=== PATIENT | male | born 1955 | race Caucasian/White ===

== ENCOUNTER → 2017-11-05 | Outpatient (CLI) | payer BC ==
--- NOTE | 2017-11-05 12:05 | DIAGNOSTIC IMAGING REPORT ---
Sang ALICEA SHLDR,HIP,KNEE FLUOROSCOPY TIME: 19 seconds HISTORY: Chronic left hip pain. PROCEDURE: After obtaining written informed consent, the patient was placed supine on the fluoroscopy table. A suitable site for needle insertion was marked using fluoroscopic guidance. The left hip was prepped and draped in the usual sterile fashion. 1% lidocaine was used for skin, subcutaneous and deep soft tissue anesthesia. Under intermittent fluoroscopic guidance, a 22 gauge x 3.5 inch spinal needle was inserted into the left femoral acetabular joint. 2 cc of Optiray 300 was injected to confirm the intra-articular location. This is followed by a mixture of 5cc of sensorcaine and 2 cc of betamethasone at the request of the referring physician. The needle was then removed. There were no apparent complications. IMPRESSION: Fluoroscopic-guided left hip steroid injection without immediate complication. The above report was generated using voice recognition software. It may contain grammatical, syntax or spelling errors. Electronically signed by: Mina Zaragoza M.D. 11/05/2017 12:03 PM Dictated Date/Time: 11/05/2017 12:01 PM
== END | disposition home or self-care (01) ==
LOC: C.RADBC 10:40
PROVIDERS: ATTEND Orthopaedic Surgery
DX: M16.12 Unilateral primary osteoarthritis, left hip (principal)

== ENCOUNTER 2019-07-21 06:38 | Inpatient (IN) ==
--- NOTE | 2019-06-26 10:11 | Anesthesiology Consultation ---
Date of Service June 26, 2019 Assessment & Plan (1) Encounter for pre-operative examination: Chart Review Chart Review: Pending: Refer to Additional Notes / Consult section (pending preop testing (labs)) and Patient seen in Pre Admission Testing Teaching & Discussion Pre-Anesthesia Teaching/Discussion Notes: Instructed NPO after midnight before surgery,except medications with 15 cc of water. Medication instructions provided according to the PAT guidelines. History Surgery Operation Date: 07/21/19 07:00 Proposed Procedures p Right Anterior Total Hip Arthroplasty - Juliocesar Ibrahim DO Height/Weight Height: 5 ft 11 in Weight: 102.9 kg Allergies Allergy/AdvReac Type Severity Reaction Status Date / Time green pepper AdvReac Unknown ABDOMINAL Verified 06/19/19 08:01 GAS Medications Home Medications Medication Instructions Recorded Confirmed Last Taken naproxen sodium [Aleve] 220 mg PO UD PRN 08/11/18 06/19/19 Unknown Past Medical History Medical History Obesity Osteoarthritis Snores no known apneic events Tinnitus Exercise / Class Metabolic Activity II 4-5 Yardwork/Stairs/Walk up hill Past Family History Family History Father Family history of diabetes mellitus Other Family history of breast cancer in mother Past Surgical History Surgical History History of colonoscopy History of herniorrhaphy INGUINAL (UNSURE WHICH SIDE) History of tooth extraction WISDOM TEETH History of total left hip replacement 09/08/18: SAB x L3-L4 at [facility] Past Anesthesia History No Hx of Anesthesia Complications and No Family Hx of Anesthesia Complications History of PONV No Hx of PONV and No Hx of Motion Sickness Social History Smoking Status: Never smoker Do You Dip or Chew Tobacco: No Hx Alcohol Use: No Hx Substance Use: No substance use type: does not use Review of Systems Patient denies chest pain, shortness of breath, dyspnea on exertion, cough, wheezing, palpitations. Physical Exam Vital Signs Last Vital Signs Temp 36.5 C 06/26/19 09:47 Pulse 69 06/26/19 09:47 Resp 20 06/26/19 09:47 BP 188/95 H 06/26/19 09:47 Pulse Ox 96 06/26/19 09:47 *BP (manual recheck after sitting/uncrossing legs: 132/82)- Patient advised to followup with PCP regarding elevated BP* PHYSICAL Full neck and c-spine range of motion. Full TMJ range of motion. TMD 4 finger breaths Mallampati Score 2 Dentition: several chipped teeth per patient Lungs: clear throughout to auscultation Cardiac: regular rate and rhythm, no murmurs noted Spine: normal Carotid arteries: negative bruit Extremities: no edema Testing Electrocardiogram Date: 08/22/18 Findings: + NSR @ (66) Chest X-Ray Date: 08/22/18 Findings: + NAD
[2019-06-26 12:06] LABS: Basophils # (auto) 0.06 K/uL (0-0.2); Basophils % (auto) 0.9 %; Eosinophils # (auto) 0.15 K/uL (0-0.5); Eosinophils % (auto) 2.3 %; Hematocrit (blood only) 45.2 % (42-52); Hemoglobin 15.3 g/dL (14.0-18.0); Immature Granulocytes # (auto) 0.01 K/uL (0.00-0.02); Immature Granulocytes % (auto) 0.2 %; Lymphocytes # (auto) 1.86 K/uL (1.2-3.4); Lymphocytes % (auto) 28.1 %; Mean Corpuscular Hemoglobin 29.8 pg (25-34); Mean Corpuscular Hgb Conc 33.8 g/dL (32-36); Mean Corpuscular Volume 87.9 fL (80-100); Mean Platelet Volume 10.1 fL (7.4-10.4); Monocytes # (auto) 0.65 K/uL (0.11-0.59); Monocytes % (auto) 9.8 %; Neutrophils # (auto) 3.88 K/uL (1.4-6.5); Neutrophils % (auto) 58.7 %; Platelet Count 289 K/uL (130-400); RDW Coefficient of Variation 13.2 % (11.5-14.5); RDW Standard Deviation 42.2 fL (36.4-46.3); Red Blood Count 5.14 M/uL (4.7-6.1); White Blood Count 6.61 K/uL (4.8-10.8)
[2019-06-26 12:18] LABS: Prothrombin Time 10.3 Seconds (9.0-12.0)
[2019-06-26 12:22] LABS: BUN Creatinine Ratio 18.1 (10-20); Calcium 9.5 mg/dl (8.5-10.1); Creatinine Clr Calc Pharmacy 91.1 ml/min; Est GFR (African American) 91.8; Est GFR (Non-African American) 79.2; Potassium 4.4 mmol/L (3.5-5.1)
--- NOTE | 2019-07-20 07:53 | History & Physical Report ---
Date of Service July 20, 2019 Assessment & Plan (1) Osteoarthritis of right hip: We will proceed with a right anterior total hip arthroplasty. Postoperatively he will be placed on aspirin for DVT prophylaxis. He will be kept overnight in the hospital for postoperative medical management. He plans to use energy physical therapy upon discharge. Present on Admission?: Yes History of Present Illness Chief Complaint: Primary osteoarthritis of the right hip Primary Care Provider: Ashutosh Juárez MD Emiliano is a pleasant 63-year-old male who I did a left anterior total hip arthroplasty on in August. He did very well with that. He was placed on aspirin postoperatively without any complications. Unfortunately he is having a lot of pain of his right hip. He uses a cane to ambulate. X-rays and clinical examination have been diagnostic for advanced osteoarthritis of the right hip. After failing conservative treatment, he has elected to proceed with a right anterior total hip arthroplasty. Allergies Allergy/AdvReac Type Severity Reaction Status Date / Time green pepper AdvReac Unknown ABDOMINAL Verified 06/19/19 08:01 GAS Home Medications Home Medications Medication Instructions Recorded Confirmed Type naproxen sodium [Aleve] 220 mg PO UD PRN 08/11/18 06/19/19 History Past Med/Surg History Medical History Obesity Osteoarthritis Snores no known apneic events Tinnitus Surgical History History of colonoscopy History of herniorrhaphy INGUINAL (UNSURE WHICH SIDE) History of tooth extraction WISDOM TEETH History of total left hip replacement 09/08/18: SAB x L3-L4 at [facility] Family History Father Family history of diabetes mellitus Other Family history of breast cancer in mother Social History Preferred Language: [place] Communication Ability: Effective Office Support Associate Required: No Beliefs That Will Affect Care: None Current Living Situation: Family Other Information That Helps Us Care for You: No Feels Safe at Home: Yes Smoking Status: Never smoker Do You Dip or Chew Tobacco: No ; Second Hand Exposure: No ; Hx Alcohol Use: No Hx Substance Use: No Review of Systems All systems reviewed & are unremarkable except as noted in HPI & below Physical Exam Constitutional: WD/WN, vitals as above Eyes: PERRL, conjunctivae normal, anicteric sclerae ENMT: external ear and nose normal, oropharynx normal Neck: trachea midline, no thyromegaly Respiratory: normal respiratory effort Cardiovascular: RRR, no murmur, no edema Gastrointestinal (Abdomen): normal bowel sounds, soft, nontender, no hepatosplenomegaly Musculoskeletal: Physical examination of the right hip reveals decreased range of motion with flexion, internal and external rotation. There is significant groin pain with forced internal rotation of the hip his leg lengths are e ssentially equal. Psychiatric: A+Ox3, euthymic affect Results & Data Diagnostic Findings Radiographs of the right hip and pelvis demonstrate advanced osteoarthritis with joint space narrowing osteophyte formation and [id number] articulation.
[~2019-07-21 06:38] MED LIST: ACETAMINOPHEN 500 MG TAB PO SCH; BUPIVACAINE 0.5 % 5 MG/1 ML PF 10ML VIAL ONE; CEFAZOLIN 2000MG 2,000 MG/15 ML SYR IV SCH; FAMOTIDINE 20 MG TAB PO SCH; GABAPENTIN 600 MG DOSE PO SCH; LIDOCAINE HCL 2% 2 ML VIAL/AMP(20MG/ML) INFIL ONE; LR 500ML BOLUS, THEN 15ML/HR IV SCH; LR 60ML/HR IV SCH; MIDAZOLAM HCL 1 MG/ML 2ML VIAL ONE; PROPOFOL IV EMULSION 10 MG/ML 20 ML VIAL IV ONE; ROPIVACAINE 0.5% HCL/PF 150 MG, BUPIVACAINE 0.5% MPF 30 ML, EPINEPHrine 30MG/30ML (OR U... INSTIL SCH; TRANEXAMIC ACID 1,000 MG **IV Intra-op IV SCH; TRANEXAMIC ACID 1,000 MG **IV Pre-op IV SCH; fentaNYL citrate 100 MCG/2 ML VIAL ONE
--- NOTE | 2019-07-21 06:45 | History & Physical Bridge Note ---
Date of Service July 21, 2019 History & Physical Bridge Note I have examined the patient, reviewed the History & Physical and in the interval since the performance of the History & Physical I have noted the following changes of clinical significance: no changes noted
[2019-07-21] MEDS ORDERED: ORTHO JOINT ANESTHETIC ONE (06:47)
[2019-07-21] MEDS ORDERED: PHENYLEPHRINE 100MCG/ML 5ML SYR ONE (08:43)
[2019-07-21] MEDS ORDERED: ePHEDrine sulfate 50 MG/ML SYR ONE (08:43)
[2019-07-21] MEDS ORDERED: ONDANSETRON INJ 2 MG/ML 2 ML VIAL IV PRN ×2 (09:04→10:51)
[2019-07-21] MEDS ORDERED: fentaNYL citrate 100 MCG/2 ML VIAL IV PRN (09:04)
[2019-07-21] MEDS ORDERED: ATROPINE SULFATE 0.1 MG/ML 10ML SYR IV PRN (09:04)
[2019-07-21] MEDS ORDERED: ePHEDrine sulfate 50 MG/ML AMP IV PRN (09:04)
[2019-07-21] MEDS ORDERED: DEXAMETHASONE SOD INJ 4 MG/ML VIAL ONE (09:06)
--- NOTE | 2019-07-21 09:35 | Operative Report ---
PG Post Operative Report Pre & Post Diagnosis Operation Date: 07/21/19 07:30 Pre-Op Diagnosis: Osteoarthritis of Right Hip Post-Op Diagnosis: Osteoarthritis of Right Hip I identified the patient and participated in the time-out.: Yes Procedure Operation Date: 07/21/19 07:30 Actual Procedures p Right Anterior Total Hip Arthroplasty(Right) - Juliocesar Ibrahim DO Surgeon Juliocesar Ibrahim, Research Test Engine Evaluator Juliocesar Naranjo PAC Estimated Blood Loss 250 Findings Consistent with Post-Op Diagnosis Specimens Right femoral head Complications none Disposition Disposition: Recovery Room Indications Emiliano is a pleasant 63-year-old male who presented my office with chronic increasing right hip and groin pain. X-rays and clinical examination were diagnostic for advanced osteoarthritis of the right hip. After failing conservative treatment, he elected proceed with a right anterior total hip arthroplasty. He underwent a left anterior hip replacement last year and is doing very well with that. Description of Procedure Implants used Biomet Taperloc total hip arthroplasty system with a size 18 standard offset Taperloc stem, a 54 mm G7 cup with a 25mm screw, an E1 polyethylene liner, a 40 mm ceramic head with a +3 neck. Patient arrived at the hospital for the above procedure. They were seen in the preoperative holding area and the operative extremity was identified and signed. They were given a spinal anesthetic. They were given a preoperative antibiotic and TXA. They were taken back To the operating room and laid on the table in the supine position. The leg was brought out through a Puristst leg positioner. The hip was then prepped and draped in sterile fashion. A timeout was done and the patient and the operative extremity was properly identified. An anterior approach was used. Dissection was taken down through the fascia and the tensor muscle belly was retracted laterally and the rectus was retracted medially. The circumflex vessels were identified and ligated. The capsule was then incised and tagged for later repair. The femoral neck was then cut and the femoral head was removed. The acetabulum was exposed. Time was spent doing a complete circumferential labral release. Sequential reaming of the acetabulum up to a size 53 reamer was done. Final reamings were done under fluoroscopy to ensure appropriate version. A Biomet 54 mm G7 cup was then impacted into place. A single 25 mm screw was placed. The E1 polyethylene liner was then snapped into place. Surrounding soft tissues were then injected with 100 cc of an orthopedic pain control cocktail. The proximal femur was then exposed. Sequential broaching up to a size 18 broach was done. Off that broach a size 40 head with a +3 neck was trialed. The hip was reduced and fluoroscopic images showed anatomic alignment of the implants in acceptable length. The broach was removed. The final size 18 standard offset Taperloc stem was then impacted into place. A ceramic 40 mm head with a +3 neck was then impacted into place in the hip was reduced. Final fluoroscopic images showed anatomic reduction of the hip. The capsule was then closed with #1 Vicryl suture. A dilute betadyne lavage was then done for 3 minutes. The joint was then irrigated with normal saline solution. The fascia was closed with #1 PDS suture. Skin was closed with 2-0 Vicryl, chao, and a Nelly VAC dressing. The patient was then transferred to a hospital bed and taken to the post anesthesia care unit in stable condition. They tolerated the procedure well. I attest to the content of the Intraoperative Record and any orders documented therein. Any exceptions are noted below.
--- NOTE | 2019-07-21 10:11 | Fluoroscopy Report ---
FL hip RT 1V CLINICAL HISTORY: Right hip arthroplasty COMPARISON STUDY: X-ray dated March 22, 2019 FLUOROSCOPY TIME: 28 seconds. NUMBER OF FLUOROSCOPIC IMAGES: 2 FINDINGS: Image #1 demonstrates resection of femoral head. There is a prosthetic acetabular cup. Imag e #2 demonstrates a total right hip arthroplasty. There is no dislocation. IMPRESSION: Intraoperative fluoroscopic spot images demonstrating a total right hip arthroplasty. Electronically signed by: Loco Cheng M.D. 07/21/2019 10:10 AM
--- NOTE | 2019-07-21 10:29 | XRay Report ---
XR hip 1V RT w pelvis CLINICAL HISTORY: Postop hip arthroplasty COMPARISON: August 2018 DISCUSSION: Again evident is a total left hip arthroplasty. Now evident is a total right hip arthropl asty. The acetabular and femoral components appear well seated. There is no dislocation. There are ov erlying skin chao. There is gas present within the soft tissues consistent with recent surgery. IMPRESSION: Postsurgical changes of a total right hip arthroplasty. No, complicating features identif ied Electronically signed by: Loco Cheng M.D. 07/21/2019 10:27 AM
[2019-07-21] MEDS ORDERED: HYDROmorphone INJ 0.5 MG/0.5 ML SYR IV PRN (10:51)
[2019-07-21] MEDS ORDERED: METOCLOPRAMIDE HCL INJ 5 MG/ML 2 ML VIAL IV PRN (10:51)
[2019-07-21] MEDS ORDERED: bisacodyL 10 MG SUPP PR PRN (10:51)
[2019-07-21] MEDS ORDERED: OXYCODONE HCL IR 5 MG TAB (IMMEDIATE RELEASE) PO PRN (10:51)
[2019-07-21] MEDS ORDERED: MAGNESIUM HYDROXIDE SUSP 30 ML UDC PO PRN (10:51)
[2019-07-21] MEDS ORDERED: NALOXONE HCL 0.4 MG/1 ML VIAL/CARP IV PRN (10:51)
--- NOTE | 2019-07-21 10:51 | Anesthesiology Progress Note ---
Date of Service July 21, 2019 Anesthesia Post Procedure Vital Signs Vital Signs: Temp Pulse Pulse Resp BP Pulse Ox 07/21/19 10:30 36.2 C L 61 18 122/73 96 07/21/19 10:20 59 L 19 99/68 L 100 07/21/19 10:10 59 L 21 122/69 99 07/21/19 10:02 36.7 C 70 16 113/65 97 07/21/19 07:18 36.5 C 73 20 137/98 96 Transfer of Care Handoff Completed per policy Notes Mental Status: alert / awake / arousable Patient Amnestic to Procedure: Yes Nausea / Vomiting: adequately controlled Pain: adequately controlled Airway Patency, RR, SpO2: stable & adequate BP & HR: stable & adequate Hydration State: stable & adequate Neuraxial Anesthesia: was administered and sensory block is resolving Anesthetic Complications: no major complications apparent
[2019-07-21] MEDS: SODIUM CHLORIDE 0.9% 1000ML 1,000 ML IV SCH ×2 (11:36→21:35)
[2019-07-21] MEDS: KETOROLAC 30 MG/ML VIAL IV SCH ×2 (12:15→17:20)
[2019-07-21] MEDS: ACETAMINOPHEN 500 MG TAB PO SCH ×2 (13:49→21:35)
[2019-07-21] MEDS: CEFAZOLIN 2000MG 2,000 MG/15 ML SYR IV SCH (17:19)
[2019-07-21] MEDS: SENNA 8.6 MG TAB PO SCH (21:34)
[2019-07-21] MEDS: ASPIRIN 81 MG ECTAB PO SCH (21:34)
[2019-07-21] MEDS: DOCUSATE SODIUM 100 MG CAP PO SCH (21:34)
[2019-07-22] MEDS: KETOROLAC 30 MG/ML VIAL IV SCH ×4 (00:55→17:46)
[2019-07-22] MEDS: CEFAZOLIN 2000MG 2,000 MG/15 ML SYR IV SCH (00:55)
[2019-07-22 06:01] LABS: Basophils # (auto) 0.01 K/uL (0-0.2); Basophils % (auto) 0.1 %; Eosinophils # (auto) 0.05 K/uL (0-0.5); Eosinophils % (auto) 0.4 %; Hematocrit (blood only) 35.2 % (42-52); Hemoglobin 11.7 g/dL (14.0-18.0); Immature Granulocytes # (auto) 0.05 K/uL (0.00-0.02); Immature Granulocytes % (auto) 0.4 %; Lymphocytes # (auto) 1.73 K/uL (1.2-3.4); Lymphocytes % (auto) 13.4 %; Mean Corpuscular Hemoglobin 29.5 pg (25-34); Mean Corpuscular Hgb Conc 33.2 g/dL (32-36); Mean Corpuscular Volume 88.9 fL (80-100); Mean Platelet Volume 9.6 fL (7.4-10.4); Monocytes # (auto) 1.74 K/uL (0.11-0.59); Monocytes % (auto) 13.5 %; Neutrophils # (auto) 9.31 K/uL (1.4-6.5); Neutrophils % (auto) 72.2 %; Platelet Count 251 K/uL (130-400); RDW Coefficient of Variation 12.9 % (11.5-14.5); RDW Standard Deviation 41.9 fL (36.4-46.3); Red Blood Count 3.96 M/uL (4.7-6.1); White Blood Count 12.89 K/uL (4.8-10.8)
[2019-07-22] MEDS: ACETAMINOPHEN 500 MG TAB PO SCH ×3 (06:01→21:17)
[2019-07-22 06:27] LABS: BUN Creatinine Ratio 18.6 (10-20); Calcium 8.7 mg/dl (8.5-10.1); Creatinine Clr Calc Pharmacy 77.4 ml/min; Est GFR (African American) 76.7; Est GFR (Non-African American) 66.2; Potassium 4.3 mmol/L (3.5-5.1)
--- NOTE | 2019-07-22 07:54 | Orthopedic Progress Note ---
Date of Service July 22, 2019 Assessment & Plan (1) History of total right hip arthroplasty: Overall is doing very well. He is not having much pain in the right hip. He will be seen by physical therapy today for ambulation and range of motion exercises. He is on aspirin for DVT prophylaxis. He will likely be discharged home tomorrow. Present on Admission?: Yes Subjective Emiliano was seen and examined at bedside this morning. Overall he is doing very well. He was actually ambulating around the nurses station when I saw him. He is not having much pain in the right hip. Is able to get some sleep last night. He has no complaints. Physical Exam Musculoskeletal: On physical examination of the right hip, the Nelly VAC dressing is to suction. His leg lengths are equal. He has active dorsiflexion and plantarflexion of his right ankle. Results & Data Vital Signs (Past 12 Hours) Vital Signs Temp Pulse Resp BP Pulse Ox 07/22/19 03:10 36.7 C 62 16 102/61 97 07/21/19 23:00 36.6 C 67 18 122/67 92 Laboratory Results H & H 06/26/19 07/22/19 Range/Units 09:58 05:20 Hgb 15.3 11.7 L (14.0-18.0) g/dL Hct 45.2 35.2 L (42-52) % Coagulation 06/26/19 Range/Units 09:58 INR 1.0 (0.9-1.1) Diagnostic Findings Postoperative x-rays of the right hip show the prosthesis to be in anatomic alignment without any evidence of fracture, dislocation, or loosening. PG Care Time/CCT Total # of Minutes Spent Total Time Spent with Patient: Total time spent is greater than 50% in coordination of care (as documented) at patient's floor/unit and/or counseling patient:
[2019-07-22] MEDS ORDERED: dexAMETHasone 10 MG in SYRINGE 0 ML IV SCH (08:00)
[2019-07-22] MEDS: DOCUSATE SODIUM 100 MG CAP PO SCH ×2 (08:39→21:16)
[2019-07-22] MEDS: ASPIRIN 81 MG ECTAB PO SCH ×2 (08:39→21:16)
[2019-07-22] MEDS: MULTIVITAMIN TAB PO SCH (08:39)
--- NOTE | 2019-07-22 10:08 | Anesthesiology Progress Note ---
Date of Service July 22, 2019 Anesthesia Post Procedure Vital Signs Vital Signs: Temp Pulse Pulse Resp BP Pulse Ox 07/22/19 08:09 36.8 C 63 18 146/105 H 97 07/22/19 03:10 36.7 C 62 16 102/61 97 07/21/19 23:00 36.6 C 67 18 122/67 92 07/21/19 15:21 36.4 C L 76 16 137/73 95 07/21/19 13:50 74 16 125/74 93 07/21/19 12:52 70 15 143/77 H 96 07/21/19 12:10 64 15 142/88 H 99 07/21/19 11:20 57 L 15 142/90 H 94 07/21/19 10:50 36.4 C L 58 L 14 120/75 96 07/21/19 10:30 36.2 C L 61 18 122/73 96 07/21/19 10:20 59 L 19 99/68 L 100 07/21/19 10:10 59 L 21 122/69 99 Notes Mental Status: alert / awake / arousable Nausea / Vomiting: adequately controlled Pain: adequately controlled Airway Patency, RR, SpO2: stable & adequate BP & HR: stable & adequate Hydration State: stable & adequate Neuraxial Anesthesia: was administered and sensory block resolved Anesthetic Complications: no major complications apparent and Pt Satisfied with anesthetic care
[2019-07-22] MEDS: SENNA 8.6 MG TAB PO SCH (21:16)
[2019-07-23] MEDS: KETOROLAC 30 MG/ML VIAL IV SCH ×2 (00:20→05:47)
[2019-07-23] MEDS: ACETAMINOPHEN 500 MG TAB PO SCH (05:46)
[2019-07-23] MEDS: DOCUSATE SODIUM 100 MG CAP PO SCH (07:28)
[2019-07-23] MEDS: MULTIVITAMIN TAB PO SCH (07:28)
[2019-07-23] MEDS: ASPIRIN 81 MG ECTAB PO SCH (07:28)
--- NOTE | 2019-07-23 08:28 | Orthopedic Progress Note ---
Date of Service July 23, 2019 Assessment & Plan (1) History of total right hip arthroplasty: Overall he is doing very well. He is on aspirin for DVT prophylaxis. He has been up and ambulating with physical therapy. He can be discharged home later this morning. He will follow-up with orthopedics in 2 weeks. Present on Admission?: Yes Subjective Emiliano was seen and examined at bedside this morning. Overall is doing very well. He is having very little pain in the right hip. He has been up and ambulating with physical therapy. He has no complaints. Physical Exam Musculoskeletal: On physical examination of the right hip, there is a little bit of ecchymosis. The Nelly VAC dressing is to suction. He has active kim siflexion and plantarflexion of the right ankle. Results & Data Vital Signs (Past 12 Hours) Vital Signs Temp Pulse Resp BP Pulse Ox 07/23/19 07:25 36.4 C L 67 14 166/85 H 97 07/22/19 23:10 36.7 C 72 18 149/70 H 97 PG Care Time/CCT Total # of Minutes Spent Total Time Spent with Patient: Total time spent is greater than 50% in coordination of care (as documented) at patient's floor/unit and/or counseling patient:
--- NOTE | 2019-07-23 08:29 | Discharge Summary ---
Date of Service July 23, 2019 Admission HPI Per Admitting Provider Emiliano is a pleasant 63-year-old male who I did a left anterior total hip arthroplasty on in August. He did very well with that. He was placed on aspirin postoperatively without any complications. Unfortunately he is having a lot of pain of his right hip. He uses a cane to ambulate. X-rays and clinical examination have been diagnostic for advanced osteoarthritis of the right hip. After failing conservative treatment, he has elected to proceed with a right anterior total hip arthroplasty. Principal Diagnosis Right total hip arthroplasty Discharge Data Allergies Allergy/AdvReac Type Severity Reaction Status Date / Time green pepper AdvReac Unknown ABDOMINAL Verified 07/21/19 07:14 GAS Consultations 07/22/19 08:00 Consult Case Management - Discharge Planning Routine Procedures Performed Operation Date: 07/21/19 07:30 Actual Procedures p Right Anterior Total Hip Arthroplasty(Right) - Juliocesar Ibrahim DO Ordered Studies 07/21/19 08:50 FL fluoroscopy <1hr Routine FL hip RT 1V Routine Hospital Course (1) History of total right hip arthroplasty: On July 21, 2019 Emiliano arrived at [facility] and underwent a right anterior total hip arthroplasty without complication. He had a spinal anesthetic. Postoperatively he was started on aspirin for DVT prophylaxis and discharged to general orthopedic floors. His hospital course was uneventful. On postop day #1 his H&H was stable and his pain was well controlled. He was able to participate well with physical therapy. On postop day #2 he continued to do well. He had another session of physical therapy. He was then discharged home. He will follow-up with orthopedics in 2 weeks. Total Time Total Time Spent Total Time Spent (In Minutes): 20 Discharge Plan Discharge Items Reason For Visit: Right Hip Degenerative Joint Disease Medications and DC Order Prescriptions: No Action naproxen sodium [Aleve] 220 mg Capsule 220 mg PO UD PRN (Reason: Pain) RF: 0 Admission Data Admit Date/Time: 07/21/19 10:04 Attending Provider: Juliocesar Ibrahim Admit Provider: Juliocesar Ibrahim Primary Care Provider: Ashutosh Juárez
== END 2019-07-23 11:30 | disposition home or self-care (01) | DRG 470 ==
LOC: ASU 06:38 → 3E 10:04